=== PATIENT | female | born 1990 | race Caucasian/White ===

== ENCOUNTER 2019-12-09 10:50 | Emergency (ER) | payer MEDICAID ==
[~2019-12-09] VITALS: Ht 160 cm; Wt 68.2 kg
[2019-12-09 11:08] LABS: GLUCOSE,POINT OF CARE 365 MG/DL (70-110)
[2019-12-09 12:42] LABS: BASOPHILS % (AUTO) 0.3 % (0.0-2.0); EOSINOPHILS % (AUTO) 0.9 % (1.0-6.0); HEMATOCRIT 38.4 % (36-46); HEMOGLOBIN 12.3 g/dL (12.0-16.0); LYMPHOCYTES # (AUTO) 1.7 K/uL (1.0-4.8); LYMPHOCYTES % (AUTO) 20.9 % (22.0-44.0); MEAN CORPUSCULAR HEMOGLOBIN 25.7 pg (26.0-34.0); MEAN CORPUSCULAR HGB CONC 32.2 G/dL (31.0-37.0); MEAN CORPUSCULAR VOLUME 80 fL (80-100); MONOCYTES # (AUTO) 0.6 K/uL (0.1-1.0); MONOCYTES % (AUTO) 7.5 % (2.0-9.0); NEUTROPHILS # (AUTO) 5.6 K/uL (1.8-7.7); NEUTROPHILS % (AUTO) 70.4 % (40.0-70.0); PLATELET COUNT (AUTO) 226 K/uL (150-450); RED BLOOD CELL COUNT(AUTO) 4.79 MIL/uL (4.00-5.20); RED CELL DISTRIBUTION WIDTH 14.2 % (11.5-14.5)
[2019-12-09 12:52] LABS: ANION GAP 4 mmol/L (8-16); CALCIUM, TOTAL 8.8 mg/dL (8.8-10.5); CARBON DIOXIDE 30 mmol/L (22-29); CHLORIDE 94 mmol/L (98-107); CREATININE 0.75 mg/dL (0.60-1.30); GLOMERULAR FILTR. RATE CALC > 60 mL/min (>60); GLUCOSE,RANDOM 390 mg/dL (70-110); POTASSIUM 4.2 mmol/L (3.5-5.1); SODIUM SERUM 128 mmol/L (136-145); UREA NITROGEN, BLOOD 9 mg/dL (7-18)
[2019-12-09 13:05] LABS: ALANINE AMINOTRANSFERASE 57 U/L (12-78); ALBUMIN 3.3 g/dL (3.4-5.0); ALKALINE PHOSPHATASE 146 U/L (46-116); ASPARTATE AMINOTRANSFERASE 24 U/L (15-37); BILIRUBIN,TOTAL 0.2 mg/dL (0.1-1.0); CREATINE KINASE, TOTAL ONLY 32 U/L (26-192); HCG,QUANTITATIVE < 1 mIU/mL (0-6); TOTAL PROTEIN, SERUM 7.7 g/dL (6.4-8.2)
[2019-12-09] MEDS ORDERED: ACETAMINOPHEN 325 MG TABLET PO ONE (14:15)
[2019-12-09] MEDS ORDERED: IBUPROFEN 400 MG TABLET PO ONE (14:15)
[2019-12-09] MEDS ORDERED: METOCLOPRAMIDE HCL 10 MG TABLET PO ONE (14:45)
[2019-12-09 15:51] VITALS: BP 127/89
== END 2019-12-09 16:34 | disposition home or self-care (01) ==
LOC: EMS 10:51
DX: R51 Headache (principal); R07.89 Other chest pain; E11.9 Type 2 diabetes mellitus without complications; R42 Dizziness and giddiness; F11.90 Opioid use, unspecified, uncomplicated; F17.210 Nicotine dependence, cigarettes, uncomplicated
CPT/HCPCS: 70450; 83735; 93005

== ENCOUNTER 2024-10-27 15:09 | Emergency (ER) | payer MEDICAID ==
[~2024-10-27] VITALS: Ht 142.2 cm; Wt 53.6 kg
[2024-10-27] MEDS ORDERED: METF-1211 PO (15:35)
[2024-10-27 15:37] VITALS: BP 92/57; PULSE 98; RESP 18; TEMP 98.1; O2SAT 100
[2024-10-27 16:38] LABS: BASOPHILS % (AUTO) 0.3 % (0.0-2.0); EOSINOPHILS % (AUTO) 0 % (1.0-6.0); HEMATOCRIT 32.1 % (36-46); HEMOGLOBIN 9.5 g/dL (12.0-16.0); LYMPHOCYTES # (AUTO) 0.9 K/uL (1.0-4.8); LYMPHOCYTES % (AUTO) 8.5 % (22.0-44.0); MEAN CORPUSCULAR HEMOGLOBIN 19.6 pg (26.0-34.0); MEAN CORPUSCULAR HGB CONC 29.6 G/dL (31.0-37.0); MEAN CORPUSCULAR VOLUME 66 fL (80-100); MONOCYTES # (AUTO) 0.5 K/uL (0.1-1.0); MONOCYTES % (AUTO) 4.6 % (2.0-9.0); NEUTROPHILS % (AUTO) 86.6 % (40.0-70.0); PLATELET COUNT (AUTO) 427 K/uL (150-450); RED BLOOD CELL COUNT(AUTO) 4.85 MIL/uL (4.00-5.20); RED CELL DISTRIBUTION WIDTH 18.6 % (11.5-14.5); WHITE BLOOD COUNT (AUTO) 10.4 K/uL (4.5-11.0)
[2024-10-27] MEDS: FAMOTIDINE 20 MG/2 ML VIAL IVP ONE (16:43)
[2024-10-27] MEDS: MAG HYDROX/ALUMINUM HYD/SIMETH 30 ML SUSPENSION UDCUP PO ONE (16:44)
[2024-10-27] MEDS: KETOROLAC TROMETHAMINE 30 MG/ML VIAL IVP ONE (16:44)
[2024-10-27] MEDS: ONDANSETRON HCL 4 MG/2 ML VIAL IVP ONE (16:44)
[2024-10-27] MEDS: SODIUM CHLORIDE 0.9% 1,000 ML IV ONE (16:45)
[2024-10-27 16:47] LABS: CALCIUM, TOTAL 8.6 mg/dL (8.8-10.5); CREATININE 1.41 mg/dL (0.60-1.30); POTASSIUM 4.1 mmol/L (3.5-5.1)
[2024-10-27] MEDS ORDERED: IOHEXOL 350 MG/ML 100 ML VIAL ONE (16:49)
[2024-10-27] MEDS ORDERED: SODIUM CHLORIDE 0.9% 100 ML ONE (16:50)
[2024-10-27 16:54] LABS: ALBUMIN 3.7 g/dL (3.4-5.0); BILIRUBIN,DIRECT 0.1 mg/dL (0.00-0.20); BILIRUBIN,TOTAL 0.4 mg/dL (0.1-1.0); TOTAL PROTEIN, SERUM 8.9 g/dL (6.4-8.2)
[2024-10-27 16:59] LABS: RBC MORPHOLOGY COMMENT ABNORMAL RBC MORPH
[2024-10-27] MEDS ORDERED: ACET-2247 PO (19:10)
[2024-10-27] MEDS ORDERED: ONDA-104 PO (19:10)
[2024-10-27] MEDS: MORPHINE SULFATE 2 MG/ML SYRINGE IVP ONE (19:37)
== END 2024-10-27 21:49 | disposition home or self-care (01) ==
LOC: EMS 15:09
DX: K80.20 Calculus of gallbladder without cholecystitis without obstruction (principal); E11.9 Type 2 diabetes mellitus without complications; F17.210 Nicotine dependence, cigarettes, uncomplicated; F14.90 Cocaine use, unspecified, uncomplicated
CPT/HCPCS: 99285; 74177; 96374; 96375; 76705; 96361; 80048; 80076; 82962; 83690; 84703; 85025; 36415; J1885; Q9967; J3490; J2270; J2405; J7030; J7050

== ENCOUNTER 2025-03-14 08:52 | Inpatient (IN) | payer MEDICAID ==
[~2025-03-14] VITALS: Ht 154.9 cm; Wt 58.0 kg
[~2025-03-14 08:52] MED LIST: ACET-2247 PO; METF-1211 PO; ONDA-104 PO
[2025-03-14 09:16] LABS: GLUCOMETER DEV NAME(LOC) ERT.7; GLUCOSE,POINT OF CARE 289 MG/DL (70-110)
[2025-03-14 09:37] LABS: BASOPHILS % (AUTO) 0.2 % (0.0-2.0); EOSINOPHILS % (AUTO) 0 % (1.0-6.0); HEMATOCRIT 34.3 % (36-46); LYMPHOCYTES # (AUTO) 0.6 K/uL (1.0-4.8); LYMPHOCYTES % (AUTO) 3.8 % (22.0-44.0); MEAN CORPUSCULAR HEMOGLOBIN 25.3 pg (26.0-34.0); MEAN CORPUSCULAR HGB CONC 31.9 G/dL (31.0-37.0); MEAN CORPUSCULAR VOLUME 79 fL (80-100); MONOCYTES # (AUTO) 1.2 K/uL (0.1-1.0); MONOCYTES % (AUTO) 8.4 % (2.0-9.0); NEUTROPHILS # (AUTO) 12.9 K/uL (1.8-7.7); PLATELET COUNT (AUTO) 225 K/uL (150-450); RED BLOOD CELL COUNT(AUTO) 4.33 MIL/uL (4.00-5.20); RED CELL DISTRIBUTION WIDTH 15.8 % (11.5-14.5); WHITE BLOOD COUNT (AUTO) 14.8 K/uL (4.5-11.0)
[2025-03-14 09:38] LABS: NEUTROPHILS % (AUTO) 87.6 % (40.0-70.0)
[2025-03-14 09:47] LABS: ANION GAP 7 mmol/L (8-16); CALCIUM, TOTAL 8.4 mg/dL (8.8-10.5); CARBON DIOXIDE 28 mmol/L (22-29); CHLORIDE 98 mmol/L (98-107); CREATININE 0.79 mg/dL (0.60-1.30); GLOMERULAR FILTR. RATE CALC > 60 mL/min (>60); GLUCOSE,RANDOM 274 mg/dL (70-110); POTASSIUM 3.3 mmol/L (3.5-5.1); SODIUM SERUM 133 mmol/L (136-145); UREA NITROGEN, BLOOD 7 mg/dL (7-18)
[2025-03-14 09:53] LABS: COVID AG,FIA SOURCE NASAL SWAB
[2025-03-14 10:12] LABS: ALBUMIN 3.1 g/dL (3.4-5.0); BILIRUBIN,DIRECT 0.1 mg/dL (0.00-0.20); BILIRUBIN,TOTAL 0.4 mg/dL (0.1-1.0); TOTAL PROTEIN, SERUM 8.2 g/dL (6.4-8.2)
[2025-03-14 10:22] LABS: APPEARANCE,URINE HAZY (CLEAR); BILIRUBIN,URINE NEGATIVE (NEGATIVE); COLOR,URINE LIGHT YELLOW (YELLOW); GLUCOSE, URINE (UA) >=1000 mg/dL (NEGATIVE); KETONES,URINE 40-60 mg/dL (NEGATIVE); LEUKOCYTE ESTERASE ,URINE MODERATE (NEGATIVE); NITRATE,URINE NEGATIVE (NEGATIVE); OCCULT BLOOD,URINE NEGATIVE (NEGATIVE); PROTEIN,URINE 30-70 mg/dL (NEGATIVE); SPECIFIC GRAVITIY, URINE 1.018 (1.003-1.030); UROBILINOGEN,URINE <=1.0 mg/dL (<=1.0)
[2025-03-14] MEDS: SODIUM CHLORIDE 0.9% 1,000 ML IV ONE ×2 (10:34→13:19)
[2025-03-14 10:35] LABS: INFLUENZA TYPE A NEGATIVE FOR TYPE A (NEGATIVE); INFLUENZA TYPE B NEGATIVE FOR TYPE B (NEGATIVE); SARS-COV2 (COVID) ANTIGEN,FIA Negative (Negative)
[2025-03-14] MEDS: KETOROLAC TROMETHAMINE 30 MG/ML VIAL IVP ONE (10:35)
[2025-03-14 10:36] LABS: BACTERIA,URINE Many /HPF (None Seen); RBC,URINE None Seen /HPF (0-2); SQUAMOUS EPITHELIAL CELL,UR Moderate /LPF (None Seen)
[2025-03-14] MEDS ORDERED: IOHEXOL 350 MG/ML 100 ML VIAL ONE (10:36)
[2025-03-14] MEDS ORDERED: SODIUM CHLORIDE 0.9% 100 ML ONE (10:36)
[2025-03-14 10:47] LABS: LACTIC ACID 1.8 mmol/L (0.4-2.0)
[2025-03-14] MEDS: FentaNYL CITRATE PF 100 MCG/2 ML VIAL IVP ONE (12:03)
[2025-03-14] MEDS: PIPERACILLIN/TAZO 3.375 GM/D5W 50 ML IV ONE (12:37)
[2025-03-14] MEDS: METOCLOPRAMIDE HCL 5 MG/ML 2 ML VIAL IVP ONE (12:56)
[2025-03-14] MEDS: HYDROmorphone HCL 2 MG/ML SYRINGE IVP ONE (13:07)
[2025-03-14] MEDS ORDERED: DEXTROSE 50%-WATER 25 GM/50 ML SYRINGE IVP PRN (13:15)
[2025-03-14] MEDS ORDERED: ZOLPIDEM TARTRATE 5 MG TABLET PO PRN (13:15)
[2025-03-14] MEDS ORDERED: MAGNESIUM HYDROXIDE SUSPENSION 30 ML UDCUP PO PRN (13:15)
[2025-03-14] MEDS ORDERED: POTASSIUM CHLORIDE 20 MEQ ER TABLET PO PRN (13:15)
[2025-03-14] MEDS: INSULIN LISPRO 100 UNITS/ML SQ PRN (15:01)
[2025-03-14] MEDS: POTASSIUM CHL 10 MEQ/WATER 50 ML IV PRN (15:01)
[2025-03-14] MEDS: MORPHINE SULFATE 2 MG/ML SYRINGE IVP PRN (15:02)
[2025-03-14] MEDS: ACETAMINOPHEN 325 MG TABLET PO PRN (17:40)
[2025-03-14] MEDS: PIPERACILLIN/TAZO 3.375 GM/D5W 50 ML IV SCH (17:42)
[2025-03-14 18:19] VITALS: BP 122/88; PULSE 68; RESP 18; TEMP 97.7; O2SAT 97
[2025-03-14 20:03] VITALS: BP 114/72; PULSE 105; RESP 16; TEMP 98.2; O2SAT 97
[2025-03-14] MEDS: DOCUSATE SODIUM 100 MG CAPSULE PO SCH (20:06)
[2025-03-14] MEDS: OxyCODONE HCL/ACETAMINOPHEN 5-325 MG TABLET PO PRN (20:07)
[2025-03-14] MEDS: ONDANSETRON HCL 4 MG/2 ML VIAL IVP PRN (21:07)
[2025-03-15 04:37] VITALS: BP 106/71; PULSE 98; RESP 18; TEMP 98.1; O2SAT 100
[2025-03-15 07:54] VITALS: BP 102/72; PULSE 93; RESP 20; TEMP 98.1; O2SAT 97
[2025-03-15] MEDS: FAMOTIDINE 20 MG TABLET PO SCH (08:32)
[2025-03-15 12:25] LABS: GLUCOMETER DEV NAME(LOC) 6N.1B; GLUCOSE,POINT OF CARE 360 MG/DL (70-110)
[2025-03-15 16:17] VITALS: BP 131/88; PULSE 104; RESP 20; TEMP 100.6; O2SAT 99
[2025-03-15] MEDS: SUMAtriptan SUCCINATE 25 MG TABLET PO PRN (16:47)
[2025-03-15 19:46] LABS: GLUCOMETER DEV NAME(LOC) 4E.2; GLUCOSE,POINT OF CARE 264 MG/DL (70-110)
[2025-03-15 19:46] LABS: GLUCOMETER DEV NAME(LOC) 4E.2; GLUCOSE,POINT OF CARE 343 MG/DL (70-110)
[2025-03-15 20:10] VITALS: BP 142/90; PULSE 101; RESP 19; TEMP 99; O2SAT 97
[2025-03-16 05:45] VITALS: BP 146/93; PULSE 98; RESP 19; TEMP 98.2; O2SAT 98
[2025-03-16] MEDS: MORPHINE SULFATE 2 MG/ML SYRINGE IVP PRN (06:27)
[2025-03-16 08:17] VITALS: BP 132/84; PULSE 96; RESP 19; TEMP 98.2; O2SAT 98
[2025-03-16 09:03] LABS: EOSINOPHILS % (AUTO) 0.1 % (1.0-6.0); HEMATOCRIT 31.6 % (36-46); HEMOGLOBIN 10.2 g/dL (12.0-16.0); LYMPHOCYTES # (AUTO) 0.7 K/uL (1.0-4.8); LYMPHOCYTES % (AUTO) 6.6 % (22.0-44.0); MEAN CORPUSCULAR HEMOGLOBIN 25.8 pg (26.0-34.0); MEAN CORPUSCULAR HGB CONC 32.3 G/dL (31.0-37.0); MEAN CORPUSCULAR VOLUME 80 fL (80-100); MONOCYTES # (AUTO) 1.1 K/uL (0.1-1.0); MONOCYTES % (AUTO) 10.5 % (2.0-9.0); NEUTROPHILS # (AUTO) 8.8 K/uL (1.8-7.7); NEUTROPHILS % (AUTO) 82.8 % (40.0-70.0); PLATELET COUNT (AUTO) 258 K/uL (150-450); RED BLOOD CELL COUNT(AUTO) 3.95 MIL/uL (4.00-5.20); RED CELL DISTRIBUTION WIDTH 15.9 % (11.5-14.5); WHITE BLOOD COUNT (AUTO) 10.7 K/uL (4.5-11.0)
[2025-03-16] MEDS: MetFORMIN HCL 500 MG TABLET PO SCH (17:14)
[2025-03-16 18:09] VITALS: BP 148/90; PULSE 103; RESP 18; TEMP 98.2; O2SAT 99
[2025-03-16 20:09] VITALS: BP 133/85; PULSE 103; RESP 18; TEMP 98.4; O2SAT 98
[2025-03-16 21:36] LABS: GLUCOMETER DEV NAME(LOC) 4E.2; GLUCOSE,POINT OF CARE 171 MG/DL (70-110)
[2025-03-16 21:36] LABS: GLUCOMETER DEV NAME(LOC) 4E.2; GLUCOSE,POINT OF CARE 210 MG/DL (70-110)
[2025-03-16 21:36] LABS: GLUCOMETER DEV NAME(LOC) 4E.2; GLUCOSE,POINT OF CARE 221 MG/DL (70-110)
[2025-03-16 21:36] LABS: GLUCOMETER DEV NAME(LOC) 4E.2; GLUCOSE,POINT OF CARE 131 MG/DL (70-110)
[2025-03-16 21:36] LABS: GLUCOMETER DEV NAME(LOC) 4E.2; GLUCOSE,POINT OF CARE 102 MG/DL (70-110)
[2025-03-16 23:50] VITALS: BP 139/95; PULSE 105; RESP 20; TEMP 98.4; O2SAT 97
[2025-03-17 05:36] VITALS: BP 133/79; PULSE 99; RESP 18; TEMP 98.6; O2SAT 98
[2025-03-17 06:21] LABS: GLUCOMETER DEV NAME(LOC) 4E.2; GLUCOSE,POINT OF CARE 210 MG/DL (70-110)
[2025-03-17 08:00] VITALS: BP 132/90; PULSE 102; RESP 20; TEMP 99.9; O2SAT 98
[2025-03-17] MEDS ORDERED: METF-1211 PO (12:14)
[2025-03-17] MEDS ORDERED: CEPH-558 PO (12:14)
[2025-03-18 11:55] LABS: GLUCOMETER DEV NAME(LOC) 4E.2; GLUCOSE,POINT OF CARE 100 MG/DL (70-110)
== END 2025-03-17 15:25 | disposition home or self-care (01) | DRG 690 ==
LOC: EMS 08:55 → EDH 13:01 → 4E 16:00
PROVIDERS: ADMIT Internal Medicine; ATTEND Internal Medicine
DX: N12 Tubulo-interstitial nephritis, not specified as acute or chronic (principal); R65.10 Systemic inflammatory response syndrome (SIRS) of non-infectious origin without acute organ dysfunction; D64.9 Anemia, unspecified; Z20.822 Contact with and (suspected) exposure to COVID-19; E11.65 Type 2 diabetes mellitus with hyperglycemia; Z83.3 Family history of diabetes mellitus
CPT/HCPCS: 70450; 74177; 80048; 80076; 81001; 82962; 83605; 83690; 84132; 84703; 85025; 87040; 87077; 87086; 87186; 87804; 99291; G0378; J1171; J1815; J1885; J2270; J2405; J2543; J2765; J3010; J3480; J7030; J7050

== ENCOUNTER 2025-04-23 15:51 | Inpatient (IN) | payer MEDICAID ==
[~2025-04-23] VITALS: Ht 149.9 cm; Wt 65.2 kg
[~2025-04-23 15:51] MED LIST changes: -ACET-2247 PO; +CEPH-558 PO; -ONDA-104 PO
[2025-04-23 16:50] LABS: PLATELET COUNT (AUTO) 556 K/uL (150-450); RED BLOOD CELL COUNT(AUTO) 3.69 MIL/uL (4.00-5.20); RED CELL DISTRIBUTION WIDTH 15.8 % (11.5-14.5); WHITE BLOOD COUNT (AUTO) 17.1 K/uL (4.5-11.0)
[2025-04-23 16:58] LABS: CALCIUM, TOTAL 8.5 mg/dL (8.8-10.5); CREATININE 1.08 mg/dL (0.60-1.30); GLOMERULAR FILTR. RATE CALC 58.0 mL/min (>60); GLUCOSE,RANDOM 234.0 mg/dL (70-110); SODIUM SERUM 134.0 mmol/L (136-145); UREA NITROGEN, BLOOD 9.0 mg/dL (7-18)
[2025-04-23 17:09] LABS: APPEARANCE,URINE CLEAR (CLEAR); GLUCOSE, URINE (UA) >=1000 mg/dL (NEGATIVE); LEUKOCYTE ESTERASE ,URINE MODERATE (NEGATIVE); NITRATE,URINE NEGATIVE (NEGATIVE); OCCULT BLOOD,URINE TRACE (NEGATIVE); SPECIFIC GRAVITIY, URINE 1.003 (1.003-1.030)
[2025-04-23 17:26] LABS: SQUAMOUS EPITHELIAL CELL,UR Few /LPF (None Seen)
[2025-04-23] MEDS ORDERED: 0.9% SODIUM CHLORIDE 10 ML SYRINGE IVP PRN (18:00)
[2025-04-23] MEDS: SODIUM CHLORIDE 0.9% 1,650 ML IV ONE (18:09)
[2025-04-23] MEDS: CefTRIAXone 1 GM/DEXTROSE 50 ML IV ONE (18:14)
[2025-04-23] MEDS: MORPHINE SULFATE 4 MG/ML SYRINGE IVP ONE (18:14)
[2025-04-23 18:15] LABS: ASPARTATE AMINOTRANSFERASE 7 U/L (15-37); TOTAL PROTEIN, SERUM 8.6 g/dL (6.4-8.2)
[2025-04-23] MEDS: ONDANSETRON HCL 4 MG/2 ML VIAL IVP ONE (18:15)
[2025-04-23 18:20] LABS: LACTIC ACID 1.5 mmol/L (0.4-2.0)
[2025-04-23] MEDS ORDERED: ACETAMINOPHEN 500 MG TABLET PO ONE (19:30)
[2025-04-23 19:31] LABS: COVID AG,FIA SOURCE NASAL SWAB
[2025-04-23 19:51] LABS: INFLUENZA TYPE A NEGATIVE FOR TYPE A (NEGATIVE); INFLUENZA TYPE B NEGATIVE FOR TYPE B (NEGATIVE); SARS-COV2 (COVID) ANTIGEN,FIA Negative (Negative)
[2025-04-23] MEDS: ACETAMINOPHEN 500 MG TABLET PO ONE (19:54)
[2025-04-23] MEDS ORDERED: DEXTROSE 50%-WATER 25 GM/50 ML SYRINGE IVP PRN (20:15)
[2025-04-23] MEDS: SODIUM CHLORIDE 0.9% 1,000 ML IV SCH (20:54)
[2025-04-23 23:10] VITALS: BP 103/63; PULSE 95; RESP 18; TEMP 98.4; O2SAT 97
[2025-04-24] VITALS (8 sets, daily range): BP systolic 100–119; BP diastolic 65–97; PULSE 89–117; RESP 16–19; TEMP 98–99; O2SAT 98–100
[2025-04-24] MEDS: MORPHINE SULFATE 2 MG/ML SYRINGE IVP PRN (00:50)
[2025-04-24 05:51] LABS: PH,URINE DRUG SCREEN 6.5 (5.0-8.0)
[2025-04-24 05:58] LABS: AMPHET/METH SCREEN,URINE NEGATIVE (NEGATIVE); BARBITURATE SCREEN, URINE NEGATIVE (NEGATIVE); CANNABINOID SCREEN,URINE NEGATIVE (NEGATIVE); COCAINE SCREEN,URINE NEGATIVE (NEGATIVE); METHADONE SCREEN, URINE NEGATIVE (NEGATIVE)
[2025-04-24 05:59] LABS: ALCOHOL, URINE DRUG SCREEN NEGATIVE (NEGATIVE)
[2025-04-24 06:18] LABS: PLATELET COUNT (AUTO) 370 K/uL (150-450); RED BLOOD CELL COUNT(AUTO) 3.11 MIL/uL (4.00-5.20); RED CELL DISTRIBUTION WIDTH 15.3 % (11.5-14.5); WHITE BLOOD COUNT (AUTO) 15.3 K/uL (4.5-11.0)
[2025-04-24 06:32] LABS: CALCIUM, TOTAL 7.9 mg/dL (8.8-10.5); CREATININE 0.71 mg/dL (0.60-1.30); GLOMERULAR FILTR. RATE CALC > 60 mL/min (>60); GLUCOSE,RANDOM 171 mg/dL (70-110); SODIUM SERUM 138 mmol/L (136-145); UREA NITROGEN, BLOOD 8 mg/dL (7-18)
[2025-04-24 06:36] LABS: GLUCOMETER DEV NAME(LOC) 5S.1D; GLUCOSE,POINT OF CARE 194 MG/DL (70-110)
[2025-04-24 06:36] LABS: GLUCOMETER DEV NAME(LOC) 5S.1D; GLUCOSE,POINT OF CARE 160 MG/DL (70-110)
[2025-04-24] MEDS: INSULIN LISPRO 100 UNITS/ML SQ PRN (07:04)
[2025-04-24] MEDS: PANTOPRAZOLE SODIUM 40 MG/VIAL IVP SCH (08:34)
[2025-04-24 15:21] LABS: GLUCOMETER DEV NAME(LOC) 5S.1D; GLUCOSE,POINT OF CARE 295 MG/DL (70-110)
[2025-04-24] MEDS: CefTRIAXone 1 GM/DEXTROSE 50 ML IV SCH (18:23)
[2025-04-24 18:56] LABS: GLUCOMETER DEV NAME(LOC) 5S.1D; GLUCOSE,POINT OF CARE 270 MG/DL (70-110)
[2025-04-25 03:31] LABS: GLUCOMETER DEV NAME(LOC) 5S.2D; GLUCOSE,POINT OF CARE 212 MG/DL (70-110)
[2025-04-25 04:03] VITALS: BP 116/68; PULSE 98; RESP 18; TEMP 98.6; O2SAT 98
[2025-04-25 06:50] LABS: PLATELET COUNT (AUTO) 376 K/uL (150-450); RED BLOOD CELL COUNT(AUTO) 2.97 MIL/uL (4.00-5.20); RED CELL DISTRIBUTION WIDTH 15.5 % (11.5-14.5); WHITE BLOOD COUNT (AUTO) 11.4 K/uL (4.5-11.0)
[2025-04-25 07:07] LABS: CALCIUM, TOTAL 7.8 mg/dL (8.8-10.5); CREATININE 0.66 mg/dL (0.60-1.30); GLOMERULAR FILTR. RATE CALC > 60 mL/min (>60); GLUCOSE,RANDOM 176 mg/dL (70-110); SODIUM SERUM 137 mmol/L (136-145); UREA NITROGEN, BLOOD 3 mg/dL (7-18)
[2025-04-25 07:29] VITALS: BP 100/64; PULSE 93; RESP 18; TEMP 98.5; O2SAT 97
[2025-04-25] MEDS: ONDANSETRON HCL 4 MG/2 ML VIAL IVP PRN (08:39)
[2025-04-25 10:02] LABS: RBC MORPHOLOGY COMMENT ABNORMAL RBC MORPH
[2025-04-25 11:10] LABS: GLUCOMETER DEV NAME(LOC) 5S.1D; GLUCOSE,POINT OF CARE 197 MG/DL (70-110)
[2025-04-25 11:49] VITALS: BP 126/88; PULSE 93; RESP 18; TEMP 98.4; O2SAT 96
[2025-04-25 16:02] VITALS: BP 120/69; PULSE 92; RESP 18; TEMP 98; O2SAT 97
[2025-04-25 16:56] LABS: GLUCOMETER DEV NAME(LOC) 5S.1D; GLUCOSE,POINT OF CARE 210 MG/DL (70-110)
[2025-04-25 17:20] VITALS: BP 131/85; PULSE 103; RESP 18; TEMP 98.1; O2SAT 97
[2025-04-25] MEDS: FERROUS SULFATE 325 MG EC TABLET PO SCH (17:30)
[2025-04-25] MEDS ORDERED: SODIUM CHLORIDE 0.9% 1,000 ML ONE (17:45)
[2025-04-25 21:07] VITALS: BP 133/77; PULSE 103; RESP 18; TEMP 98.4; O2SAT 99
[2025-04-25 22:01] LABS: GLUCOMETER DEV NAME(LOC) 5S.2D; GLUCOSE,POINT OF CARE 119 MG/DL (70-110)
[2025-04-25 22:01] LABS: GLUCOMETER DEV NAME(LOC) 5S.2D; GLUCOSE,POINT OF CARE 208 MG/DL (70-110)
[2025-04-26 00:48] VITALS: BP 119/72; PULSE 103; RESP 17; TEMP 98.6; O2SAT 97
[2025-04-26 04:03] VITALS: BP 112/80; PULSE 99; RESP 18; TEMP 98.2; O2SAT 99
[2025-04-26 07:32] VITALS: BP 135/82; PULSE 100; RESP 18; TEMP 98.2; O2SAT 98
[2025-04-26 08:16] LABS: GLUCOMETER DEV NAME(LOC) 5N.1D; GLUCOSE,POINT OF CARE 139 MG/DL (70-110)
[2025-04-26 11:32] VITALS: BP 132/87; PULSE 98; RESP 18; TEMP 98.2; O2SAT 97
[2025-04-26 15:17] VITALS: BP 118/82; PULSE 93; RESP 18; TEMP 98.1; O2SAT 98
[2025-04-26 16:15] LABS: GLUCOMETER DEV NAME(LOC) 5N.2C; GLUCOSE,POINT OF CARE 212 MG/DL (70-110)
[2025-04-26 20:29] VITALS: BP 136/90; PULSE 102; RESP 18; TEMP 98.2; O2SAT 98
[2025-04-27 00:46] VITALS: BP 100/68; PULSE 93; RESP 18; TEMP 97.5; O2SAT 98
[2025-04-27 01:16] LABS: GLUCOMETER DEV NAME(LOC) 5S.1D; GLUCOSE,POINT OF CARE 226 MG/DL (70-110)
[2025-04-27 05:09] VITALS: BP 113/78; PULSE 91; RESP 18; TEMP 98.2; O2SAT 99
[2025-04-27 05:21] LABS: GLUCOMETER DEV NAME(LOC) 5N.2C; GLUCOSE,POINT OF CARE 202 MG/DL (70-110)
[2025-04-27 06:15] LABS: PLATELET COUNT (AUTO) 516 K/uL (150-450); RED BLOOD CELL COUNT(AUTO) 3.60 MIL/uL (4.00-5.20); RED CELL DISTRIBUTION WIDTH 16.0 % (11.5-14.5); WHITE BLOOD COUNT (AUTO) 6.7 K/uL (4.5-11.0)
[2025-04-27 06:21] LABS: CALCIUM, TOTAL 8.6 mg/dL (8.8-10.5); CREATININE 0.75 mg/dL (0.60-1.30); GLOMERULAR FILTR. RATE CALC > 60 mL/min (>60); GLUCOSE,RANDOM 108 mg/dL (70-110); SODIUM SERUM 140 mmol/L (136-145); UREA NITROGEN, BLOOD 10 mg/dL (7-18)
[2025-04-27 06:21] LABS: GLUCOMETER DEV NAME(LOC) 5N.1D; GLUCOSE,POINT OF CARE 114 MG/DL (70-110)
[2025-04-27 06:27] LABS: RBC MORPHOLOGY COMMENT ABNORMAL RBC MORPH
[2025-04-27 07:55] VITALS: BP 118/73; PULSE 92; RESP 17; TEMP 98.2; O2SAT 100
[2025-04-27 12:01] LABS: GLUCOMETER DEV NAME(LOC) 5N.1D; GLUCOSE,POINT OF CARE 201 MG/DL (70-110)
[2025-04-27 12:08] VITALS: BP 125/93; PULSE 96; RESP 17; TEMP 97.7; O2SAT 97
[2025-04-27] MEDS ORDERED: METF-1185 PO (13:04)
[2025-04-27] MEDS ORDERED: LEVO750T68 PO (13:04)
[2025-04-27] MEDS ORDERED: FERR325T27 PO (13:04)
[2025-04-27] MEDS ORDERED: DOCU-385 PO (13:04)
== END 2025-04-27 14:47 | disposition home or self-care (01) | DRG 720 ==
LOC: EMS 15:51 → EDH 20:01 → 5S 22:36
PROVIDERS: ADMIT Internal Medicine; ATTEND Internal Medicine
DX: A41.51 Sepsis due to Escherichia coli [E. coli] (principal); N12 Tubulo-interstitial nephritis, not specified as acute or chronic; E11.9 Type 2 diabetes mellitus without complications; D50.9 Iron deficiency anemia, unspecified; Z20.822 Contact with and (suspected) exposure to COVID-19; Z79.4 Long term (current) use of insulin; Z83.3 Family history of diabetes mellitus
CPT/HCPCS: 71045; 74176; 76705; 80048; 80076; 80307; 81001; 82962; 83605; 83690; 84145; 84703; 85025; 85610; 87040; 87077; 87086; 87186; 87205; 87804; 93005; 99291; G0378; J0696; J2270; J2405; J2470; J7030; 36415-L1; 36415-TC

== ENCOUNTER 2025-06-11 20:26 | Inpatient (IN) | payer MEDICAID ==
[~2025-06-11] VITALS: Ht 154.9 cm; Wt 64.1 kg
[~2025-06-11 20:26] MED LIST changes: -CEPH-558 PO; +DOCU-385 PO; +FERR325T27 PO; +LEVO750T68 PO; +METF-1185 PO
[2025-06-11 20:57] LABS: APPEARANCE,URINE HAZY (CLEAR); GLUCOSE, URINE (UA) >=1000 mg/dL (NEGATIVE); LEUKOCYTE ESTERASE ,URINE LARGE (NEGATIVE); NITRATE,URINE NEGATIVE (NEGATIVE); OCCULT BLOOD,URINE SMALL (NEGATIVE); SPECIFIC GRAVITIY, URINE 1.014 (1.003-1.030)
[2025-06-11 21:08] LABS: SQUAMOUS EPITHELIAL CELL,UR Few /LPF (None Seen)
[2025-06-11 21:15] LABS: PLATELET COUNT (AUTO) 560 K/uL (150-450); RED BLOOD CELL COUNT(AUTO) 4.51 MIL/uL (4.00-5.20); RED CELL DISTRIBUTION WIDTH 17.2 % (11.5-14.5); WHITE BLOOD COUNT (AUTO) 14.3 K/uL (4.5-11.0)
[2025-06-11 21:23] LABS: CALCIUM, TOTAL 9.1 mg/dL (8.8-10.5); CREATININE 1.13 mg/dL (0.60-1.30); GLOMERULAR FILTR. RATE CALC 55.0 mL/min (>60); SODIUM SERUM 129.0 mmol/L (136-145); UREA NITROGEN, BLOOD 11.0 mg/dL (7-18)
[2025-06-11 21:25] LABS: GLUCOSE,RANDOM 479.0 mg/dL (70-110)
[2025-06-11 21:38] LABS: ASPARTATE AMINOTRANSFERASE 8 U/L (15-37); HCG,QUANTITATIVE < 1 mIU/mL (0-6); TOTAL PROTEIN, SERUM 8.6 g/dL (6.4-8.2)
[2025-06-11 21:49] LABS: LACTIC ACID 2.1 mmol/L (0.4-2.0)
[2025-06-11 21:56] LABS: RBC MORPHOLOGY COMMENT ABNORMAL RBC MORPH
[2025-06-11] MEDS: SODIUM CHLORIDE 0.9% 1,800 ML IV ONE (22:47)
[2025-06-11] MEDS: KETOROLAC TROMETHAMINE 30 MG/ML VIAL IVP ONE (22:47)
[2025-06-11] MEDS: CefTRIAXone 1 GM/DEXTROSE 50 ML IV ONE (22:47)
[2025-06-11] MEDS ORDERED: DEXTROSE 50%-WATER 25 GM/50 ML SYRINGE IVP PRN (23:30)
[2025-06-11] MEDS ORDERED: ZOLPIDEM TARTRATE 5 MG TABLET PO PRN (23:30)
[2025-06-11] MEDS ORDERED: ONDANSETRON HCL 4 MG/2 ML VIAL IVP PRN (23:30)
[2025-06-11] MEDS: SODIUM CHLORIDE 0.9% 1,000 ML IV ONE (23:58)
[2025-06-12] VITALS (9 sets, daily range): BP systolic 101–128; BP diastolic 50–79; PULSE 85–112; RESP 17–18; TEMP 97.9–102.1; O2SAT 96–100
[2025-06-12] MEDS: INSULIN GLARGINE,HUM.REC.ANLOG 100 UNITS/ML SQ SCH
[2025-06-12] MEDS ORDERED: IOHEXOL 300 MG/ML 100 ML VIAL ONE
[2025-06-12] MEDS: OxyCODONE HCL/ACETAMINOPHEN 5-325 MG TABLET PO PRN (00:06)
[2025-06-12] MEDS: MORPHINE SULFATE 2 MG/ML SYRINGE IVP PRN (04:37)
[2025-06-12] MEDS: INSULIN LISPRO 100 UNITS/ML SQ PRN (07:24)
[2025-06-12] MEDS: FAMOTIDINE 20 MG TABLET PO SCH (08:26)
[2025-06-12] MEDS: DOCUSATE SODIUM 100 MG CAPSULE PO SCH (08:27)
[2025-06-12] MEDS: SODIUM CHLORIDE 0.9% 1,000 ML IV ONE (08:51)
[2025-06-12] MEDS ORDERED: ONDANSETRON HCL 4 MG/2 ML VIAL IVP PRN (13:30)
[2025-06-12] MEDS: SODIUM CHLORIDE 0.9% 1,000 ML IV SCH (13:35)
[2025-06-12] MEDS: ACETAMINOPHEN 325 MG TABLET PO PRN (20:45)
[2025-06-12] MEDS: CefTRIAXone 1 GM/DEXTROSE 50 ML IV SCH (21:44)
[2025-06-12] MEDS ORDERED: PIPERACILLIN SODIUM/TAZOBACTAM 2.25 GM in DEXTROSE 5%-WATER 50 ML IV SCH (23:45)
[2025-06-13] VITALS (8 sets, daily range): BP systolic 90–138; BP diastolic 54–93; PULSE 81–98; RESP 16–18; TEMP 97.9–98.6; O2SAT 95–98
[2025-06-13] MEDS: SODIUM CHLORIDE 0.9% 500 ML IV ONE (00:10)
[2025-06-13] MEDS: PIPERACILLIN/TAZO 3.375 GM/D5W 50 ML IV SCH (04:41)
[2025-06-13 06:12] LABS: PLATELET COUNT (AUTO) 368 K/uL (150-450); RED BLOOD CELL COUNT(AUTO) 3.75 MIL/uL (4.00-5.20); RED CELL DISTRIBUTION WIDTH 16.7 % (11.5-14.5); WHITE BLOOD COUNT (AUTO) 11.3 K/uL (4.5-11.0)
[2025-06-13 06:18] LABS: CALCIUM, TOTAL 7.9 mg/dL (8.8-10.5); CREATININE 0.67 mg/dL (0.60-1.30); GLOMERULAR FILTR. RATE CALC > 60 mL/min (>60); GLUCOSE,RANDOM 177 mg/dL (70-110); SODIUM SERUM 136 mmol/L (136-145); UREA NITROGEN, BLOOD 6 mg/dL (7-18)
[2025-06-13 09:39] LABS: RBC MORPHOLOGY COMMENT ABNORMAL RBC MORPH
[2025-06-13 09:42] LABS: GLUCOMETER DEV NAME(LOC) 5N.1D; GLUCOSE,POINT OF CARE 215 MG/DL (70-110)
[2025-06-13 09:42] LABS: GLUCOMETER DEV NAME(LOC) 5N.1D; GLUCOSE,POINT OF CARE 259 MG/DL (70-110)
[2025-06-13 09:42] LABS: GLUCOMETER DEV NAME(LOC) 5N.1D; GLUCOSE,POINT OF CARE 290 MG/DL (70-110)
[2025-06-13 09:42] LABS: GLUCOMETER DEV NAME(LOC) 5N.1D; GLUCOSE,POINT OF CARE 294 MG/DL (70-110)
[2025-06-13 09:47] LABS: GLUCOMETER DEV NAME(LOC) 5S.2D; GLUCOSE,POINT OF CARE 246 MG/DL (70-110)
[2025-06-13] MEDS: MORPHINE SULFATE 2 MG/ML SYRINGE IVP PRN (17:06)
[2025-06-13 22:11] LABS: GLUCOMETER DEV NAME(LOC) 4E.2; GLUCOSE,POINT OF CARE 205 MG/DL (70-110)
[2025-06-13 22:11] LABS: GLUCOMETER DEV NAME(LOC) 4E.2; GLUCOSE,POINT OF CARE 310 MG/DL (70-110)
[2025-06-14 04:05] VITALS: BP 114/79; PULSE 88; RESP 18; TEMP 97.9; O2SAT 99
[2025-06-14 08:00] VITALS: BP 124/76; PULSE 87; RESP 18; TEMP 97.7; O2SAT 98
[2025-06-14 08:06] LABS: GLUCOMETER DEV NAME(LOC) 6S.2; GLUCOSE,POINT OF CARE 169 MG/DL (70-110)
[2025-06-14] MEDS ORDERED: AMOX1TAB15 PO (10:09)
[2025-06-14 13:13] VITALS: BP 130/89; PULSE 91; RESP 18; TEMP 98.1; O2SAT 100
[2025-06-14 13:41] LABS: GLUCOMETER DEV NAME(LOC) 4E.2; GLUCOSE,POINT OF CARE 298 MG/DL (70-110)
== END 2025-06-14 14:00 | disposition home or self-care (01) | DRG 720 ==
LOC: EMS 20:26 → EDH 23:23 → 5S 06-12 03:10 → 6S 06-13 16:08
PROVIDERS: ADMIT Internal Medicine; ATTEND Internal Medicine
DX: A41.9 Sepsis, unspecified organism (principal); E87.1 Hypo-osmolality and hyponatremia; E11.65 Type 2 diabetes mellitus with hyperglycemia; N10 Acute pyelonephritis; F14.90 Cocaine use, unspecified, uncomplicated; Z79.4 Long term (current) use of insulin; Z83.3 Family history of diabetes mellitus
CPT/HCPCS: 74177; 76770; 80048; 80076; 81001; 82962; 83605; 83690; 84702; 85025; 87040; 87077; 87086; 87186; 99291; G0378; J0696; J1815; J1885; J2270; J2543; J7030; J7040; Q9967